=== PATIENT | male | born 1940 | race Caucasian/White ===

== ENCOUNTER 2023-10-25 14:00 | Emergency (ER) | payer OTHER, MEDICARE ==
[2023-10-25 14:15] VITALS: RESP 18
--- NOTE | 2023-10-25 18:06 | US ---
EXAMINATION TYPE: US venous doppler duplex UE RT DATE OF EXAM: 10/25/2023 COMPARISON: NONE CLINICAL INDICATION: Male, 83 years old with history of redness/swelling; rt antecubital redness/solange a since IV SIDE PERFORMED: right right arm negative for DVT at patients area of concern is occlusive thrombus within the cephalic vain. Vessel wall is thickened with surrounding edema and hypervascularity IMPRESSION: 1. No suspicious right upper extremity deep venous thrombosis. 2. Superficial thrombosis present within the cephalic vein
--- NOTE | 2023-10-25 18:08 | ED ---
General Adult HPI - General Chief complaint: Extremity Problem,Nontraumatic Stated complaint: R arm Infection Time Seen by Provider: 10/25/23 17:15 Source: patient, family, RN notes reviewed, old records reviewed Mode of arrival: wheelchair Limitations: no limitations - History of Present Illness Initial comments: Patient is an 83-year-old male who presents emergency department complaining of right arm pain and swelling. At the site of a previous IV from prior hospital admission for which she was discharged from 2 days ago, has a swelling with some surrounding edema and erythema. Concern for infection versus possible blood clot. No other acute complaints. Patient was discharged home with a Osborne catheter and patient's daughter is concerned that he is not urinating enough. No fevers. No other acute complaints at this time. Presents for further evaluation. Workup started in triage. - Related Data Home Medications Medication Instructions Recorded Confirmed Aspirin 81 mg PO DAILY 10/25/23 10/25/23 Atorvastatin Calcium [Lipitor] 40 mg PO DAILY 10/25/23 10/25/23 QUEtiapine [SEROquel] 25 mg PO DIRECTED 10/25/23 10/25/23 amLODIPine [Norvasc] 5 mg PO DAILY PRN 10/25/23 10/25/23 Previous Rx's Medication Instructions Recorded Cephalexin [Keflex] 500 mg PO Q12HR 10 Days #5 cap 10/25/23 Allergies Allergy/AdvReac Type Severity Reaction Status Date / Time No Known Allergies Allergy Verified 10/25/23 18:18 Review of Systems ROS Statement: Those systems with pertinent positive or pertinent negative responses have been documented in the HPI. Review of Systems: CONST: Denies fever EYES: Denies blurry vision ENT: Denies nasal congestion C/V: Denies Chest pain RESP: Denies shortness of breath GI: Denies abdominal pain : Denies dysuria SKIN: Endorses erythema, swelling to right antecubital area. MSK: Denies joint pain. NEURO: Denies headache ROS Other: All systems not noted in ROS Statement are negative. Past Medical History Past Medical History: Dementia, Hypertension Additional Past Medical History / Comment(s): family poor historian History of Any Multi-Drug Resistant Organisms: None Reported Past Surgical History: No Surgical Hx Reported Past Psychological History: No Psychological Hx Reported Smoking Status: Never smoker Past Alcohol Use History: None Reported Past Drug Use History: None Reported General Exam - General Exam Comments Initial Comments: General: Appears in no acute distress. HEAD: Normal with no signs of head trauma. EYES: EOMI. ENT: Hearing grossly intact. RESPIRATORY: No respiratory distress. C/V: Regular rate and rhythm. ABD: Abdomen is nondistended. No tenderness to palpation. EXT: No obvious deformity. SKIN: Over the right antecubital space, patient has erythema with some swelling. Suspect thrombophlebitis versus possible overlying cellulitis. Cannot rule out some form of blood clot. Ultrasound will be obtained. NEURO: Alert and oriented. Limitations: no limitations Course Vital Signs 10/25/23 10/25/23 10/25/23 14:10 18:40 19:26 Temperature 98.6 F 98.5 F Pulse Rate 74 84 80 Respiratory 18 18 18 Rate Blood Pressure 157/90 164/78 156/79 O2 Sat by Pulse 98 97 97 Oximetry Medical Decision Making - Medical Decision Making Was pt. sent in by a medical professional or institution (, PA, SURGICAL ASSISTANT CERTIFIED, urgent ca re, hospital, or skilled nursing...) When possible be specific @ -No Did you speak to anyone other than the patient for history (EMS, parent, family, police, friend...)? What history was obtained from this source @ -Patient's daughter is the primary historian for the patient. Did you review nursing and triage notes (agree or disagree)? Why? @ -I reviewed and agree with nursing and triage notes Were old charts reviewed (outside hosp., previous admission, EMS record, old EKG, old radiological studies, urgent care reports/EKG's, skilled nursing records)? Report findings @ -No old charts were reviewed Differential Diagnosis (chest pain, altered mental status, abdominal pain women, abdominal pain men, vaginal bleeding, weakness, fever, dyspnea, syncope, headache, dizziness, GI bleed, back pain, seizure, CVA, palpatations, mental health, musculoskeletal)? @ -Thrombophlebitis, cellulitis, DVT. This list is not all inclusive. EKG interpreted by me (3pts min.). @ -None none X-rays interpreted by me (1pt min.). @ -None done CT interpreted by me (1pt min.). @ -None done U/S interpreted by me (1pt. min.). @ -Right upper extremity ultrasound revealed superficial thrombosis with no evidence of DVT. What testing was considered but not performed or refused? (CT, X-rays, U/S, labs)? Why? @ -None What meds were considered but not given or refused? Why? @ -None Did you discuss the management of the patient with other professionals (professionals i.e. , PA, SURGICAL ASSISTANT CERTIFIED, lab, RT, psych nurse, social media assistant, art therapy certified supervisor, teacher, consumer safety officer, mental health case manager)? Give summary @ -No Was smoking cessation discussed for >3mins.? @ -No Was critical care preformed (if so, how long)? @ -No Were there social determinants of health that impacted care today? How? (Homelessness, low income, unemployed, alcoholism, drug addiction, transportation, low edu. Level, literacy, decrease access to med. care, [place] [facility], rehab)? @ -No Was there de-escalation of care discussed even if they declined (Discuss DNR or withdrawal of care, Hospice)? DNR status @ -No What co-morbidities impacted this encounter? (DM, HTN, Smoking, COPD, CAD, Cancer, CVA, ARF, Chemo, Hep., AIDS, mental health diagnosis, sleep apnea, morbid obesity)? @ -None Was patient admitted / discharged? Hospital course, mention meds given and route, prescriptions, significant lab abnormalities, going to OR and other pertinent info. @ -Patient presents with skin changes had an IV site from a discharge from the hospital few days ago. Ultrasound ordered in triage. I suspect either thrombophlebitis versus cellulitis versus possible DVT. Pending ultrasound results. Patient declines analgesia medications. Patient's daughter also concern for possible urinary retention as he did remove his own catheter during that stay. Has been urinating normally but wants to make sure he is urinating enough. Postvoid bladder scan was 20 to 30 cc. It does appear that he is not having any form of urinary retention. He has no other acute complaints. We are awaiting results of ultrasound. Laboratory studies are not needed at this time. Vital signs within acceptable limits. Patient declined analgesia medications.Ultrasound revealed right upper extremity superficial thrombosis. Test results with patient as well as family. Will be empirically started on Keflex. Patient in agreement this plan. Recommended icing, elevation, NSAIDs for pain. Recommended follow-up with PCP for reevaluation of the site if it does not improve in the next 5 to 7 days. They were in agreement this plan. I will provide the patient with a prescription for Keflex. I instructed the patient to follow up with their PCP in the next 1-3 days.. I explained that the patient should return to the emergency department if they experience any worsening symptoms. Strict return precautions were discussed with the patient. The patient expressed understanding of these instructions. I answered all questions that the patient had. The patient was discharged home in good condition with their prescriptions and follow up information. Undiagnosed new problem with uncertain prognosis? @ -No Drug Therapy requiring intensive monitoring for toxicity (Heparin, Nitro, Insulin, Cardizem)? @ -No Were any procedures done? @ -No Diagnosis/symptom? @ -Superficial thrombosis, cellulitis Acute, or Chronic, or Acute on Chronic? @ -Acute Uncomplicated (without systemic symptoms) or Complicated (systemic symptoms)? @ -Uncomplicated Side effects of treatment? @ -None Exacerbation, Progression, or Severe Exacerbation] @ -No Poses a threat to life or bodily function? @ -Unlikely Disposition Clinical Impression: Superficial venous thrombosis of arm, Cellulitis Disposition: HOME SELF-CARE Condition: Good Additional Instructions: elevate, ice, and use NSAIDs for your superficial thrombosis. follow up with PCP in 5-7 days. Prescriptions: Cephalexin [Keflex] 500 mg PO Q12HR 10 Days #5 cap Is patient prescribed a controlled substance at d/c from ED?: No Referrals: [facility],Clinic [Primary Care Provider] - 1-2 days Time of Disposition: 19:00
[2023-10-25] MEDS: CEPHALEXIN 500 MG CAP PO STA (19:01)
[2023-10-25 19:30] VITALS: BP 156/79; PULSE 80; TEMP 98.5
== END 2023-10-25 19:30 | disposition home or self-care (01) ==
LOC: EC 14:00
CPT/HCPCS: 51798; 99284